=== PATIENT | female | born 1945 | race Caucasian/White ===

== ENCOUNTER 2016-11-11 07:53 | Outpatient (CLI) | payer MEDICARE, OTHER | END 2016-11-11 07:54 | disposition home or self-care (01) | DX: R25.2 Cramp and spasm (principal) ==

== ENCOUNTER 2016-12-24 13:50 | Outpatient (CLI) | payer MEDICARE, OTHER ==
--- NOTE | 2016-12-25 16:42 | Mammography Report ---
DIGITAL SCREENING MAMMOGRAM: 12/24/2016 CLINICAL INDICATION: A 71-year-old for screening. COMPARISON: 11/2012, 10/2011, 06/2010, 05/2009, 04/2008, 11/2006. TECHNIQUE: Routine CC and MLO projections were obtained of the breasts. The breasts demonstrate scattered fibroglandular densities bilaterally. Coarse and punctate, typical ly benign calcifications are present. No suspicious masses, clustered microcalcifications, or region s of architectural distortion are identified. IMPRESSION: BENIGN FINDINGS. RECOMMENDATION: ROUTINE ANNUAL SCREENING UNLESS OTHERWISE CLINICALLY INDICATED. BIRADS CATEGORY: 2, BENIGN FINDINGS. STANDARD QUALIFYING STATEMENTS 1. This examination was reviewed with the aid of Computed-Aided Detection (CAD). 2. A negative or benign imaging report should not delay biopsy if clinically suspicious findings are present. Consider surgical consultation if warranted. More than 5% of cancers are not identified b y imaging. 3. Dense breasts may obscure an underlying neoplasm. JOB #: [id number] EXT JOB #:[id number]
== END 2016-12-24 13:51 | disposition home or self-care (01) ==
LOC: DI.N 13:50
PROVIDERS: ATTEND Family Medicine
DX: Z12.31 Encounter for screening mammogram for malignant neoplasm of breast (principal)
CPT/HCPCS: 77067

== ENCOUNTER 2017-03-30 08:00 | Outpatient (CLI) | payer MEDICARE, OTHER ==
[2017-03-30 13:15] LABS: HEMOGLOBIN A1C 0.48 g/dL
[2017-03-30 13:25] LABS: ALBUMIN/GLOBULIN RATIO 1.6 (1.0-2.2); BILIRUBIN,TOTAL 0.9 mg/dL (0.2-1.0); BUN - BLOOD UREA NITROGEN 15 mg/dL (6-20); CALCIUM 9.7 mg/dL (8.5-10.3); CARBON DIOXIDE - CO2 26 mmol/L (21-32); CHLORIDE 101 mmol/L (101-111); CHOL/HDL RATIO 2.3 (<4.4); CHOLESTEROL 226 mg/dL; CREATININE 0.8 mg/dL (0.4-1.0); GFR - MDRD 71 (>89); GLUCOSE 91 mg/dL (70-100); HDL CHOLESTEROL 98 mg/dL; LDL/HDL RATIO 1.2 (<4.4); SODIUM 135 mmol/L (135-145); TOTAL PROTEIN 7.5 g/dL (6.7-8.2); TRIGLYCERIDES 50 mg/dL; VLDL CHOLESTEROL 10 mg/dL
== END 2017-03-30 08:01 | disposition home or self-care (01) ==
LOC: LAB.WCP 08:00
PROVIDERS: ATTEND Family Medicine
DX: E74.39 Other disorders of intestinal carbohydrate absorption (principal); E78.5 Hyperlipidemia, unspecified; I10 Essential (primary) hypertension; R73.01 Impaired fasting glucose; Z13.1 Encounter for screening for diabetes mellitus
CPT/HCPCS: 36415; 80053; 80061; 83036

== ENCOUNTER 2018-01-10 09:34 | Outpatient (CLI) | payer MEDICARE, OTHER ==
[2018-01-10 13:23] LABS: HB2 TOTAL 14.7 g/dL; HEMOGLOBIN A1C 0.47 g/dL; HEMOGLOBIN A1C % 5.1 % (4.6-6.2)
[2018-01-10 13:53] LABS: ALBUMIN 4.4 g/dL (3.2-5.5); ALBUMIN/GLOBULIN RATIO 1.4 (1.0-2.2); ALKALINE PHOSPHATASE 64 IU/L (42-121); ALT ALANINE AMINOTRANSFERASE 22 IU/L (10-60); AST ASPARTATE AMINOTRANSFERASE 28 IU/L (10-42); BILIRUBIN,TOTAL 0.7 mg/dL (0.2-1.0); BUN - BLOOD UREA NITROGEN 18 mg/dL (6-20); CALCIUM 9.5 mg/dL (8.5-10.3); CARBON DIOXIDE - CO2 26 mmol/L (21-32); CHLORIDE 100 mmol/L (101-111); CHOL/HDL RATIO 1.9 (<4.4); CHOLESTEROL 190 mg/dL; CREATININE 0.5 mg/dL (0.4-1.0); GFR - MDRD 122 (>89); GLUCOSE 94 mg/dL (70-100); HDL CHOLESTEROL 102 mg/dL; LDL CHOLESTEROL,CALCULATED 77 mg/dL; LDL/HDL RATIO 0.8 (<4.4); SODIUM 132 mmol/L (135-145); TOTAL PROTEIN 7.6 g/dL (6.7-8.2); VLDL CHOLESTEROL 11 mg/dL
== END 2018-01-10 09:35 | disposition home or self-care (01) ==
LOC: LAB.WCP 09:34
PROVIDERS: ATTEND Family Medicine
DX: E74.39 Other disorders of intestinal carbohydrate absorption (principal); E78.5 Hyperlipidemia, unspecified; I10 Essential (primary) hypertension; R73.01 Impaired fasting glucose
CPT/HCPCS: 36415; 80053; 80061; 83036; 83721

== ENCOUNTER 2018-01-26 13:30 | Outpatient (CLI) | payer MEDICARE, OTHER ==
--- NOTE | 2018-01-27 17:03 | Mammography Report ---
Procedure Date: 01/26/2018 Accession Number: [id number] / [id number] Procedure: MGN - Screening Mammo Dig Bilat CPT Code: FULL RESULT: EXAM: Screening Mammo Dig Bilat DATE: 01/26/2018 1:49 PM CLINICAL HISTORY: 72-year-old female presents for screening mammogram. TECHNIQUE: Bilateral CC and MLO views were obtained. COMPARISON: 12/24/2016, 01/01/2014, 12/02/2012, 11/13/2011. FINDINGS: The breasts demonstrate diffuse fatty replacement bilaterally. Typically benign coarse bilateral calcifications are seen in both breasts. No suspicious masses, clustered microcalcifications, or regions of architectural distortion are identified. IMPRESSION: Benign findings RECOMMENDATION: Routine annual screening unless otherwise clinically indicated. BIRADS CATEGORY 2: Benign findings STANDARD QUALIFYING STATEMENTS: 1. This examination was reviewed with the aid of Computer-Aided Detection (CAD). 2. A negative or benign imaging report should not delay biopsy if clinically suspicious findings are present. Consider surgical consultation if warrented. More than 5% of cancers are not identified by imaging. 3. Dense breasts may obscure an underlying neoplasm.
== END 2018-01-26 13:31 | disposition home or self-care (01) ==
LOC: DI.N 13:30
PROVIDERS: ATTEND Radiology Diagnostic Radiology
DX: Z12.31 Encounter for screening mammogram for malignant neoplasm of breast (principal)
CPT/HCPCS: 77067

== ENCOUNTER 2018-05-03 09:12 | Outpatient (CLI) | payer MEDICARE, OTHER ==
[2018-05-03 12:26] LABS: BASOPHILS # (AUTO) 0.1 10^3/uL (0.0-0.1); BASOPHILS % (AUTO) 1.9 %; EOSINOPHILS # (AUTO) 0.2 10^3/uL (0.0-0.7); EOSINOPHILS % (AUTO) 4.8 %; HGB - HEMOGLOBIN 13.4 g/dL (12.0-16.0); LYMPHOCYTES # (AUTO) 1.1 10^3/uL (1.5-3.5); LYMPHOCYTES % (AUTO) 30.9 %; MEAN CORPUSCULAR HEMOGLOBIN 30.8 pg (27.0-31.0); MEAN CORPUSCULAR HGB CONC 34.3 g/dL (32.0-36.0); MEAN CORPUSCULAR VOLUME 89.8 fL (81.0-99.0); MEAN PLATELET VOLUME 8.7 fL (7.9-10.8); MONOCYTES # (AUTO) 0.3 10^3/uL (0.0-1.0); MONOCYTES % (AUTO) 7.3 %; NEUTROPHILS % (AUTO) 55.1 %; PLT - PLATELET COUNT 228 10^3/uL (130-450); RED BLOOD COUNT 4.35 10^6/uL (4.20-5.40); RED CELL DISTRIBUTION WIDTH 13.3 % (12.0-15.0); WHITE BLOOD COUNT 3.7 x10^3/uL (4.8-10.8)
[2018-05-03 12:59] LABS: ALBUMIN 4.6 g/dL (3.2-5.5); ALBUMIN/GLOBULIN RATIO 2.1 (1.0-2.2); ALKALINE PHOSPHATASE 62 IU/L (42-121); ALT ALANINE AMINOTRANSFERASE 22 IU/L (10-60); AST ASPARTATE AMINOTRANSFERASE 28 IU/L (10-42); BILIRUBIN,TOTAL 0.8 mg/dL (0.2-1.0); BUN - BLOOD UREA NITROGEN 21 mg/dL (6-20); CALCIUM 9.2 mg/dL (8.5-10.3); CARBON DIOXIDE - CO2 28 mmol/L (21-32); CHLORIDE 99 mmol/L (101-111); CHOL/HDL RATIO 2.8 (<4.4); CHOLESTEROL 261 mg/dL; CREATININE 0.7 mg/dL (0.4-1.0); GFR - MDRD 82 (>89); GLUCOSE 86 mg/dL (70-100); HDL CHOLESTEROL 92 mg/dL; LDL CHOLESTEROL,CALCULATED 155 mg/dL; LDL/HDL RATIO 1.7 (<4.4); MAGNESIUM 1.7 mg/dL (1.7-2.8); SODIUM 135 mmol/L (135-145); TOTAL PROTEIN 6.8 g/dL (6.7-8.2); VLDL CHOLESTEROL 14 mg/dL
== END 2018-05-03 23:59 | disposition home or self-care (01) ==
LOC: LAB.WCP 09:12
PROVIDERS: ATTEND Physician Assistant
DX: I10 Essential (primary) hypertension (principal); E78.5 Hyperlipidemia, unspecified; R25.2 Cramp and spasm
CPT/HCPCS: 36415; 80053; 80061; 83721; 83735; 85025

== ENCOUNTER 2018-11-28 08:00 | Outpatient (CLI) | payer MEDICARE, OTHER | END 2018-11-28 23:59 | disposition home or self-care (01) | LOC: LAB.R 08:00 | PROVIDERS: ATTEND Physician Assistant | DX: R35.0 Frequency of micturition (principal) | CPT/HCPCS: 87077; 87086; 87181 ==

== ENCOUNTER 2018-12-02 08:00 | Outpatient (CLI) | payer MEDICARE, OTHER ==
[2018-12-02 13:58] LABS: BASOPHILS % (AUTO) 0.8 %; EOSINOPHILS # (AUTO) 0.1 10^3/uL (0.0-0.7); EOSINOPHILS % (AUTO) 1.7 %; HGB - HEMOGLOBIN 11.9 g/dL (12.0-16.0); LYMPHOCYTES # (AUTO) 0.7 10^3/uL (1.5-3.5); LYMPHOCYTES % (AUTO) 12.1 %; MEAN CORPUSCULAR HEMOGLOBIN 29.8 pg (27.0-31.0); MEAN CORPUSCULAR HGB CONC 33.6 g/dL (32.0-36.0); MEAN CORPUSCULAR VOLUME 88.7 fL (81.0-99.0); MEAN PLATELET VOLUME 8.9 fL (7.9-10.8); MONOCYTES # (AUTO) 0.7 10^3/uL (0.0-1.0); MONOCYTES % (AUTO) 12.1 %; NEUTROPHILS % (AUTO) 73.3 %; PLT - PLATELET COUNT 188 10^3/uL (130-450); RED BLOOD COUNT 3.99 10^6/uL (4.20-5.40); RED CELL DISTRIBUTION WIDTH 13.7 % (12.0-15.0); WHITE BLOOD COUNT 5.5 x10^3/uL (4.8-10.8)
[2018-12-02 14:34] LABS: ALBUMIN 3.7 g/dL (3.2-5.5); BILIRUBIN,TOTAL 0.5 mg/dL (0.2-1.0); CALCIUM 9.2 mg/dL (8.5-10.3); CREATININE 0.8 mg/dL (0.4-1.0); TOTAL PROTEIN 7.3 g/dL (6.7-8.2)
== END 2018-12-02 23:59 | disposition home or self-care (01) ==
LOC: LAB.WCP 08:00
PROVIDERS: ATTEND Family Medicine
DX: R50.9 Fever, unspecified (principal); R25.2 Cramp and spasm; N39.0 Urinary tract infection, site not specified
CPT/HCPCS: 36415; 80053; 85025; 87086

== ENCOUNTER 2018-12-05 11:42 | Outpatient (CLI) | payer MEDICARE, OTHER ==
[2018-12-06 13:04] LABS: HEPATITIS A IGM NON-REACTIVE (NON-REACTIVE); HEPATITIS B CORE ANTIBODY IGM NON-REACTIVE (NON-REACTIVE); HEPATITIS B SURFACE ANTIGEN NON-REACTIVE (NON-REACTIVE); HEPATITIS C ANTIBODY NON-REACTIVE (NON-REACTIVE)
== END 2018-12-05 11:43 | disposition home or self-care (01) ==
LOC: LAB.WCP 11:42
PROVIDERS: ATTEND Family Medicine
DX: R94.5 Abnormal results of liver function studies (principal)
CPT/HCPCS: 36415; 80074

== ENCOUNTER 2018-12-13 11:30 | Outpatient (CLI) | payer MEDICARE, OTHER | END 2018-12-13 11:31 | disposition home or self-care (01) | LOC: LAB.WCP 11:30 | PROVIDERS: ATTEND Physician Assistant | DX: N39.0 Urinary tract infection, site not specified (principal) | CPT/HCPCS: 81002; 87086 ==

== ENCOUNTER 2018-12-13 12:13 | Outpatient (CLI) | payer MEDICARE, OTHER ==
[2018-12-13 19:34] LABS: ALBUMIN 3.8 g/dL (3.2-5.5); ALBUMIN/GLOBULIN RATIO 0.9 (1.0-2.2); BILIRUBIN,TOTAL 0.6 mg/dL (0.2-1.0); CALCIUM 9.8 mg/dL (8.5-10.3); CREATININE 1.1 mg/dL (0.4-1.0)
[2018-12-13 19:35] LABS: BASOPHILS # (AUTO) 0.1 10^3/uL (0.0-0.1); BASOPHILS % (AUTO) 0.3 %; EOSINOPHILS % (AUTO) 0.1 %; HGB - HEMOGLOBIN 12.3 g/dL (12.0-16.0); LYMPHOCYTES % (AUTO) 5.1 %; MEAN CORPUSCULAR HEMOGLOBIN 29.4 pg (27.0-31.0); MEAN CORPUSCULAR HGB CONC 31.9 g/dL (32.0-36.0); MEAN CORPUSCULAR VOLUME 91.9 fL (81.0-99.0); MEAN PLATELET VOLUME 10.4 fL (7.9-10.8); MONOCYTES # (AUTO) 1.1 10^3/uL (0.0-1.0); MONOCYTES % (AUTO) 5.4 %; NEUTROPHILS # (AUTO) 17.7 10^3/uL (1.5-6.6); NEUTROPHILS % (AUTO) 88.2 %; PLT - PLATELET COUNT 382 10^3/uL (130-450); RED BLOOD COUNT 4.19 10^6/uL (4.20-5.40); RED CELL DISTRIBUTION WIDTH 13.4 % (12.0-15.0)
== END 2018-12-13 12:14 | disposition home or self-care (01) ==
LOC: LAB.WCP 12:13
PROVIDERS: ATTEND Physician Assistant
DX: R79.89 Other specified abnormal findings of blood chemistry (principal); N39.0 Urinary tract infection, site not specified; R50.9 Fever, unspecified
CPT/HCPCS: 36415; 80053; 81002; 83690; 85025; 87086

== ENCOUNTER 2018-12-15 08:00 | Outpatient (CLI) | payer MEDICARE, OTHER ==
[2018-12-15 19:12] LABS: BASOPHILS % (AUTO) 0.5 %; EOSINOPHILS # (AUTO) 0.1 10^3/uL (0.0-0.7); EOSINOPHILS % (AUTO) 1.1 %; HGB - HEMOGLOBIN 10.9 g/dL (12.0-16.0); LYMPHOCYTES % (AUTO) 12.1 %; MEAN CORPUSCULAR HEMOGLOBIN 28.8 pg (27.0-31.0); MEAN CORPUSCULAR HGB CONC 31.8 g/dL (32.0-36.0); MEAN CORPUSCULAR VOLUME 90.7 fL (81.0-99.0); MEAN PLATELET VOLUME 11.1 fL (7.9-10.8); MONOCYTES # (AUTO) 0.5 10^3/uL (0.0-1.0); MONOCYTES % (AUTO) 6.3 %; NEUTROPHILS # (AUTO) 6.7 10^3/uL (1.5-6.6); NEUTROPHILS % (AUTO) 79.5 %; PLT - PLATELET COUNT 289 10^3/uL (130-450); RED BLOOD COUNT 3.78 10^6/uL (4.20-5.40); RED CELL DISTRIBUTION WIDTH 13.2 % (12.0-15.0); WHITE BLOOD COUNT 8.4 x10^3/uL (4.8-10.8)
[2018-12-15 19:59] LABS: ALBUMIN 3.6 g/dL (3.2-5.5); ALBUMIN/GLOBULIN RATIO 0.9 (1.0-2.2); BILIRUBIN,TOTAL 0.6 mg/dL (0.2-1.0); CALCIUM 9.4 mg/dL (8.5-10.3); CREATININE 1.1 mg/dL (0.4-1.0); TOTAL PROTEIN 7.6 g/dL (6.7-8.2)
== END 2018-12-15 23:59 | disposition home or self-care (01) ==
LOC: LAB.WCP 08:00
PROVIDERS: ATTEND Family Medicine
DX: N10 Acute pyelonephritis (principal); R79.89 Other specified abnormal findings of blood chemistry
CPT/HCPCS: 36415; 80053; 82977; 85025

== ENCOUNTER 2018-12-31 09:06 | Outpatient (CLI) | payer MEDICARE, OTHER ==
--- NOTE | 2019-01-02 09:28 | Ultrasound Report ---
Reason: ABNORMAL LIVER FUNCTION TESTS Procedure Date: 12/31/2018 Accession Number: [id number] / [id number] Procedure: US - Abdomen Limited CPT Code: FULL RESULT: EXAM: ABDOMEN LIMITED EXAM DATE: 12/31/2018 09:53 AM INDICATION: Abnormal liver function tests. COMPARISONS: None. FINDINGS: Liver: Liver parenchyma is heterogeneous and moderately hyperechoic. No discrete liver masses or intrahepatic bile duct dilation. However, evaluation for masses is limited secondary to the echogenicity. 0.9 cm anechoic right liver cyst. No concerning features are noted. Right liver measures 13.6 cm. Main portal vein flow: Hepatopetal. Gallbladder: Normal. No stones, wall thickening, or sonographic Fields's sign. Biliary System: CBD measures 4 mm. No intrahepatic or extrahepatic ductal dilatation. Pancreas: Normal. Right kidney: 10.5 cm. No hydronephrosis. Mild pelviectasis. Right renal pelvis measures 1.4 cm. There are multiple simple right-sided renal cysts with the largest measuring 5.1 x 4.7 x 5.1 cm. No concerning features. Abdominal aorta and IVC: Normal. Other: None. IMPRESSION: 1. Mild to moderately echogenic fatty liver. No mass. 0.9 cm simple right liver cyst. 2. Normal gallbladder and common bile duct. Grossly unremarkable pancreas. RADIA
== END 2018-12-31 09:07 | disposition home or self-care (01) ==
LOC: DI 09:06
PROVIDERS: ATTEND Physician Assistant
DX: K76.0 Fatty (change of) liver, not elsewhere classified (principal); R94.5 Abnormal results of liver function studies
CPT/HCPCS: 76705

== ENCOUNTER 2019-01-03 08:00 | Outpatient (CLI) | payer MEDICARE, OTHER ==
[2019-01-03 18:57] LABS: ALBUMIN 4.3 g/dL (3.2-5.5); ALBUMIN/GLOBULIN RATIO 1.3 (1.0-2.2); BILIRUBIN,TOTAL 0.8 mg/dL (0.2-1.0); CALCIUM 9.6 mg/dL (8.5-10.3); TOTAL PROTEIN 7.7 g/dL (6.7-8.2)
== END 2019-01-03 23:59 | disposition home or self-care (01) ==
LOC: LAB.WCP 08:00
PROVIDERS: ATTEND Physician Assistant
DX: R94.5 Abnormal results of liver function studies (principal)
CPT/HCPCS: 36415; 80053

== ENCOUNTER 2019-03-22 13:25 | Outpatient (CLI) | payer MEDICARE, OTHER ==
--- NOTE | 2019-03-23 10:13 | Mammography Report ---
Reason: ROUTINE MAMMO Procedure Date: 03/22/2019 Accession Number: [id number] / [id number] Procedure: MGN - Screening Mammo Dig Bilat CPT Code: FULL RESULT: EXAM: Screening Mammo Dig Bilat DATE: 03/22/2019 1:42 PM CLINICAL HISTORY: Screening encounter. TECHNIQUE: (B) - Bilateral CC and MLO views were obtained. COMPARISON: 01/26/2018 through 12/02/2012. PARENCHYMAL PATTERN: (A) - The breast(s) demonstrate(s) scattered fibroglandular densities. FINDINGS: There are coarse typically benign calcifications. Additionally, in the right axillary tail region, 9 cm from the nipple at the 11:00 position is an increasing focal asymmetry, questionably with increasing calcifications. This requires additional spot magnification views, ideally tomographic evaluation and potentially ultrasound for clarification. There are no suspicious masses, calcifications, or areas of distortion in the left breast. IMPRESSION: Incomplete examination. BI-RADS category 0. RECOMMENDATION: (ADDM[facility]) - Additional views using both Mammography and Ultrasound recommended. Right breast upper outer quadrant. BI-RADS CATEGORY: (0) - Incomplete Examination - need additional evaluation. STANDARD QUALIFYING STATEMENTS: 1. This examination was not reviewed with the aid of Computer-Aided Detection (CAD). 2. A negative or benign imaging report should not preclude biopsy if clinically suspicious findings are present. 3. Dense breasts may obscure an underlying neoplasm. 4. This examination was reviewed without the aid of 3D breast imaging (tomosynthesis).
== END 2019-03-22 13:26 | disposition home or self-care (01) ==
LOC: DI.N 13:25
DX: Z12.31 Encounter for screening mammogram for malignant neoplasm of breast (principal)
CPT/HCPCS: 77067

== ENCOUNTER 2019-04-03 09:27 | Outpatient (CLI) | payer MEDICARE, OTHER ==
--- NOTE | 2019-04-03 10:08 | Mammography Report ---
Reason: ABN MAMMO - SPEC VIEWS RIGHT Procedure Date: 04/03/2019 Accession Number: [id number] / [id number] Procedure: INGRID - Diag Special Views Dig RT CPT Code: FULL RESULT: EXAM: Diag Special Views Dig RT DATE: 04/03/2019 9:49 AM CLINICAL HISTORY: Recall from screening upper outer right breast. TECHNIQUE: (R) - Right coned magnified CC and ML views. RML 3-D. COMPARISON: 03/22/2019 through 12/02/2012. PARENCHYMAL PATTERN: (A) - The breasts demonstrate scattered fibroglandular densities bilaterally. FINDINGS: Right breast: Additional images demonstrate a 17 mm asymmetry with associated punctate calcifications unchanged compared to studies dating back to 2012. With compression, finding subtotally effaces and resembles glandular tissue. There are no suspicious masses, calcifications, or areas of distortion. IMPRESSION: Benign findings. BI-RADS category 2. Finding nearly effaces with compression and returns to baseline appearance compared to studies dating back to 2012. RECOMMENDATION: (ANNUAL) - Recommend routine annual screening mammography. BI-RADS CATEGORY: (2) - Benign Findings. STANDARD QUALIFYING STATEMENTS: 1. This examination was not reviewed with the aid of Computer-Aided Detection (CAD). 2. A negative or benign imaging report should not preclude biopsy if clinically suspicious findings are present. 3. Dense breasts may obscure an underlying neoplasm. 4. This examination was reviewed with the aid of 3D breast imaging (tomosynthesis).
== END 2019-04-03 09:28 | disposition home or self-care (01) ==
LOC: DI 09:27
PROVIDERS: ATTEND Physician Assistant
DX: N63.11 Unspecified lump in the right breast, upper outer quadrant (principal)

== ENCOUNTER 2020-03-01 14:32 | Outpatient (CLI) | payer MEDICARE, OTHER | END 2020-03-01 14:33 | disposition home or self-care (01) | LOC: COV 14:32 | PROVIDERS: ATTEND Ophthalmology | DX: Z01.818 Encounter for other preprocedural examination (principal); H25.11 Age-related nuclear cataract, right eye; Z20.828 Contact with and (suspected) exposure to other viral communicable diseases ==

== ENCOUNTER 2020-03-07 07:18 | Day surgery (SDC) | payer MEDICARE, OTHER ==
[2020-03-07] MEDS ORDERED: EPINEPHrine 1 MG/ML AMP ONE (07:19)
[2020-03-07] MEDS ORDERED: MIDAZOLAM 2 MG/2 ML VIAL IVP ONE ×2 (07:19)
[2020-03-07] MEDS ORDERED: BSS/LIDOCAINE/EPINEPHRINE 1 ML SYRINGE ONE (07:20)
[2020-03-07] MEDS ORDERED: BRIMONIDINE 0.2% OPHTH DROPS 5 ML ONE (07:20)
[2020-03-07] MEDS ORDERED: TRIAMCIN/MOXIFLOX OPHTHALMIC 0.6 ML VIAL IO ONE ×2 (07:20→08:43)
[2020-03-07] MEDS ORDERED: TIMOLOL 0.5% OPHTH DROPS ONE (07:21)
[2020-03-07] MEDS ORDERED: LACTATED RINGERS 500 ML IV ONE ×2 (07:26→08:47)
[2020-03-07] MEDS ORDERED: CYCLOPENTOLATE 1% OPHTH DROPS 2 ML ONE (07:50)
[2020-03-07] MEDS ORDERED: PHENYLEPHRINE 2.5% OPHTH 2 ML DROPS ONE (07:50)
[2020-03-07] MEDS ORDERED: KETOROLAC 0.45% OPHTH DROPS ONE (07:50)
[2020-03-07] MEDS ORDERED: PROPARACAINE 0.5% OPHTH DROPS 15 ML ONE (07:50)
--- NOTE | 2020-03-07 08:07 | ANESTHESIA ---
Pre-Anesthesia VS, & Labs - Diagnosis R nuclear sclerotic cataract - Procedure R cataract extraction w/IOL Vital Signs: Temp Pulse Resp BP Pulse Ox 36.1 C L 67 16 135/102 H 99 03/07/20 07:31 03/07/20 07:31 03/07/20 07:31 03/07/20 07:31 03/07/20 07:31 Height 5 ft Weight (kg) 57.8 kg - NPO >8 hours - Is Patient ?: No Home Medications and Allergies Home Medications: Ambulatory Orders Diclofenac Sodium [Voltaren-Xr] 100 mg PO DAILY 03/07/20 Lisinopril [Prinivil] 5 mg PO DAILY 03/07/20 Meloxicam 7.5 mg PO DAILY 03/07/20 Omeprazole 20 mg PO DAILY 03/07/20 Simvastatin 40 mg PO DAILY 03/07/20 amLODIPine [Norvasc] 5 mg PO DAILY 03/07/20 rOPINIRole [Requip] 0.25 mg PO QPM 03/07/20 Diclofenac Sodium [Voltaren-Xr] 100 mg PO DAILY 03/07/20 Lisinopril [Prinivil] 5 mg PO DAILY 03/07/20 Meloxicam 7.5 mg PO DAILY 03/07/20 Omeprazole 20 mg PO DAILY 03/07/20 Simvastatin 40 mg PO DAILY 03/07/20 amLODIPine [Norvasc] 5 mg PO DAILY 03/07/20 rOPINIRole [Requip] 0.25 mg PO QPM 03/07/20 Allergies/Adverse Reactions: Allergies Allergy/AdvReac Type Severity Reaction Status Date / Time No Known Drug Allergies Allergy Verified 03/06/20 12:53 Anes History & Medical History - Anesthetic History Anesthesia Complications: reports: No previous complications Family history of Anesthesia Complications: Denies Family history of Malignant Hyperthermia: Denies - Medical History Cardiovascular: reports: Hypertension, High cholesterol Pulmonary: reports: None Gastrointestinal: reports: None Urinary: reports: None Musculoskeletal: reports: Osteoarthritis Endocrine/Autoimmune: reports: None Skin: reports: None - Surgical History General: Colonoscopy Exam General: Oriented x3, Cooperative Dental: WNL Mouth Openin Fingerbreadth Neck Mobility: Normal Mallampati classification: II Thyromental Distance: 4-6 cm Respiratory: Lungs clear, Normal breath sounds, No respiratory distress Cardiovascular: Regular rate Neurological: Normal speech Mental/Cognitive Status: Alert/Oriented X3, Normal for patient Cognitive Status: Within normal limits Plan Anesthesia Type: MAC Consent for Procedure(s) Verified and Reviewed: Yes Code Status: Attempt Resuscitation ASA classification: 2-Mild systemic disease Is this case an emergency?: No
[2020-03-07] MEDS ORDERED: BRIMONIDINE 0.2% OPHTH DROPS 5 ML OPTH ONE (08:42)
[2020-03-07] MEDS ORDERED: EPINEPHrine 1 MG/ML AMP IR ONE (08:42)
[2020-03-07] MEDS ORDERED: TIMOLOL 0.5% OPHTH DROPS OPTH ONE (08:42)
[2020-03-07] MEDS ORDERED: CHONDR SULF/HYALURONATE SYRINGE IO ONE (08:42)
[2020-03-07] MEDS ORDERED: BSS/LIDOCAINE/EPINEPHRINE 1 ML SYRINGE IO ONE (08:43)
[2020-03-07] MEDS ORDERED: PROPARACAINE 0.5% OPHTH DROPS 15 ML EACHEYE ONE (08:43)
[2020-03-07] MEDS ORDERED: VANCOMYCIN OPHTHALMI 8MG/0.8ML 8 MG/0.8 ML SYRINGE IO ONE (08:44)
[2020-03-07 09:06] VITALS: BP 109/73
--- NOTE | 2020-03-07 11:46 | OPERATIVE REPORT ---
DATE OF SERVICE: 03/07/2020 Physician: Lino Roberts MD PREOPERATIVE DIAGNOSIS: Visually significant cataract, right eye. This was her first cataract surge ry. POSTOPERATIVE DIAGNOSIS: Visually significant cataract, right eye. This was her first cataract surg tom. PROCEDURE: Phacoemulsification with posterior chamber intraocular lens implant, right eye. SURGEON: Lino Roberts MD ANESTHESIA: Monitored anesthesia care. COMPLICATIONS: None. OPERATIVE INDICATIONS: This is a 74-year-old woman with progressive vision loss in the right eye due to 2+ nuclear sclerotic and 3+ cortical cataract. Best corrected visual acuity was 20/40, with glar e to 20/80 in the right eye. Indications for surgery were overall decrease in vision, difficulty see ing words on a computer screen, difficulty reading, difficulty driving in low light or at night, diff iculty driving at night because of headlights from other vehicles, and difficulty with glare or brigh t lights in any situation. She was consented at length concerning risks and benefits of cataract sherin carmen, after which she expressed a desire to proceed with surgery. OPERATIVE PROCEDURE: Patient was taken to OR #3 and placed under monitored anesthesia care and surgi annie timeout was conducted confirming correct patient, correct procedure, and correct surgical site. She was given topical anesthesia then prepped and draped in the usual sterile fashion. The eye was e ntered at the 12, and 9 o'clock positions. Intracameral Shugarcaine was injected into the anterior c hamber, followed by Viscoat. A continuous-tear curvilinear capsulorrhexis was performed. The nucleu s was hydrodissected and phacoemulsified. The cortex was evacuated using automated infusion and aspi ration. Provisc was injected in the capsular bag, and a 21.0 diopter intraocular lens inserted in th e bag. Infusion and aspiration was used to evacuate the viscoelastic materials. The eye was inflate d to physiologic pressure using balanced salt solution and found to be watertight. Approximately 0.2 5 mL of a mixture of triamcinolone and moxifloxacin was injected trans sclerally into the vitreous in the inferotemporal quadrant. An additional 0.55 mL of a mixture of triamcinolone, moxifloxacin and vancomycin was injected subconjunctivally in the superior quadrant for infection and inflammation pro phylaxis. Wound integrity was checked with Weck-Mary sponges. Patient was taken from the Operating R oom in good condition and given postoperative instructions. TD: 03/07/2020 08:54
== END 2020-03-07 07:19 | disposition home or self-care (01) ==
LOC: SDS 07:18
PROVIDERS: ATTEND Ophthalmology
PROC: 08RJ3JZ Replacement of Right Lens with Synthetic Substitute, Percutaneous Approach (ICD-10-PCS; principal; 2020-03-07 08:30)
DX: H25.11 Age-related nuclear cataract, right eye (principal); I10 Essential (primary) hypertension; E78.00 Pure hypercholesterolemia, unspecified; Z87.891 Personal history of nicotine dependence
CPT/HCPCS: 66984; A9270; J3490; V2632

== ENCOUNTER 2020-04-08 08:00 | Outpatient (CLI) | payer MEDICARE, OTHER | END 2020-04-08 23:59 | disposition home or self-care (01) | LOC: LAB 08:00 | PROVIDERS: ATTEND Ophthalmology | DX: Z01.818 Encounter for other preprocedural examination (principal); Z20.828 Contact with and (suspected) exposure to other viral communicable diseases; H25.12 Age-related nuclear cataract, left eye ==

== ENCOUNTER 2020-04-11 10:22 | Day surgery (SDC) | payer MEDICARE, OTHER ==
[~2020-04-11 10:22] MED LIST: KETOROLAC 0.45% OPHTH DROPS ONE; PHENYLEPHRINE 2.5% OPHTH 2 ML DROPS ONE; PROPARACAINE 0.5% OPHTH DROPS 15 ML ONE
[2020-04-11] MEDS ORDERED: LACTATED RINGERS 500 ML IV ONE ×2 (11:03→12:09)
[2020-04-11] MEDS ORDERED: NALOXONE 0.4 MG/ML VIAL IVP PRN (11:17)
[2020-04-11] MEDS ORDERED: ePHEDrine 50 MG/ML VIAL IVP PRN (11:17)
[2020-04-11] MEDS ORDERED: ATROPINE ABBOJECT 1 MG/10 ML SYRINGE IVP PRN (11:17)
[2020-04-11] MEDS ORDERED: MORPHINE 2 MG/ML CARPUJECT IVP PRN (11:17)
[2020-04-11] MEDS ORDERED: HYDROmorphone 0.5 MG/0.5 ML SYRINGE IVP PRN (11:17)
[2020-04-11] MEDS ORDERED: METOCLOPRAMIDE 10 MG/2 ML VIAL IVP PRN (11:17)
[2020-04-11] MEDS ORDERED: fentaNYL 100 MCG/2 ML VIAL IVP PRN (11:17)
[2020-04-11] MEDS ORDERED: ONDANSETRON 4 MG/2 ML VIAL IVP PRN (11:17)
--- NOTE | 2020-04-11 11:17 | ANESTHESIA ---
Pre-Anesthesia VS, & Labs - Diagnosis left eye cataract - Procedure left catiol Vital Signs: Temp Pulse Resp BP Pulse Ox 36.4 C L 57 L 16 122/78 99 04/11/20 10:45 04/11/20 10:45 04/11/20 10:45 04/11/20 10:45 04/11/20 10:45 Height: 4 ft 11 in Weight (kg): 57.6 kg Body Mass Index: 25.6 BMI Classification: Overweight - NPO >8 hours - Is Patient ?: No Home Medications and Allergies Diclofenac Sodium [Voltaren-Xr] 100 mg PO DAILY 03/07/20 Lisinopril [Prinivil] 5 mg PO DAILY 03/07/20 Meloxicam 7.5 mg PO DAILY 03/07/20 Omeprazole 20 mg PO DAILY 03/07/20 Simvastatin 40 mg PO DAILY 03/07/20 amLODIPine [Norvasc] 5 mg PO DAILY 03/07/20 rOPINIRole [Requip] 0.25 mg PO QPM 03/07/20 Allergies/Adverse Reactions: Allergies Allergy/AdvReac Type Severity Reaction Status Date / Time No Known Drug Allergies Allergy Verified 03/06/20 12:53 Anes History & Medical History - Anesthetic History Anesthesia Complications: reports: No previous complications Family history of Anesthesia Complications: Denies Family history of Malignant Hyperthermia: Denies - Medical History Cardiovascular: reports: Hypertension, High cholesterol Pulmonary: reports: None Gastrointestinal: reports: None Urinary: reports: None Musculoskeletal: reports: Osteoarthritis Endocrine/Autoimmune: reports: None Skin: reports: None - Surgical History General: Colonoscopy Exam General: Alert, Oriented x3, Cooperative, No acute distress Dental: WNL Mouth Openin Fingerbreadth Neck Mobility: Normal Mallampati classification: II Plan Anesthesia Type: MAC Consent for Procedure(s) Verified and Reviewed: Yes Code Status: Attempt Resuscitation ASA classification: 2-Mild systemic disease Is this case an emergency?: No
[2020-04-11] MEDS ORDERED: fentaNYL 100 MCG/2 ML VIAL IVP ONE (11:53)
[2020-04-11] MEDS ORDERED: MIDAZOLAM 2 MG/2 ML VIAL IVP ONE (11:53)
[2020-04-11] MEDS ORDERED: BRIMONIDINE 0.2% OPHTH DROPS 5 ML OPTH ONE (11:54)
[2020-04-11] MEDS ORDERED: PROPARACAINE 0.5% OPHTH DROPS 15 ML EACHEYE ONE (11:55)
[2020-04-11] MEDS ORDERED: EPINEPHrine 1 MG/ML AMP IR ONE (11:55)
[2020-04-11] MEDS ORDERED: CHONDR SULF/HYALURONATE SYRINGE IO ONE (11:55)
[2020-04-11] MEDS ORDERED: TIMOLOL 0.5% OPHTH DROPS OPTH ONE (11:55)
[2020-04-11] MEDS ORDERED: BSS/LIDOCAINE/EPINEPHRINE 1 ML SYRINGE IO ONE (11:56)
[2020-04-11] MEDS ORDERED: TRIAMCIN/MOXIFLOX OPHTHALMIC 0.6 ML VIAL IO ONE (11:57)
[2020-04-11] MEDS ORDERED: VANCOMYCIN OPHTHALMI 8MG/0.8ML 8 MG/0.8 ML SYRINGE IO ONE (11:59)
[2020-04-11] MEDS ORDERED: LACTATED RINGERS 1,000 ML IV SCH (12:00)
[2020-04-11 12:21] VITALS: BP 115/69
--- NOTE | 2020-04-11 13:52 | ANESTHESIA POST OP EVALUATION ---
Anesthesia Post Eval - Post Anesthesia Eval Vitals: Last Vital Signs Temp 36.4 C L 04/11/20 12:20 Pulse 60 04/11/20 12:20 Resp 22 04/11/20 12:20 BP 115/69 04/11/20 12:20 Pulse Ox 96 04/11/20 12:20 CV Function Including HR & BP: positive: Stable Pain Control: positive: Satisfactory Nausea & Vomiting: positive: Negative Mental Status: positive: Baseline Respiratory Status: Airway Patent Hydration Status: Satisfactory Anesthesia Complications: positive: None
--- NOTE | 2020-04-11 16:39 | OPERATIVE REPORT ---
DATE OF SERVICE: 04/11/2020 Physician: Lino Roberts MD PREOPERATIVE DIAGNOSIS: Visually significant cataract, left eye. Cataract surgery was performed on the right eye on 03/07/2020. POSTOPERATIVE DIAGNOSIS: Visually significant cataract, left eye. Cataract surgery was performed on the right eye on 03/07/2020. PROCEDURE: Phacoemulsification with posterior chamber intraocular lens implant, left eye. SURGEON: Lino Roberts MD ANESTHESIA: Monitored anesthesia care. COMPLICATIONS: None. OPERATIVE INDICATIONS: This is a 75-year-old woman with progressive vision loss in the left eye due to 2+ nuclear sclerotic and 3+ cortical cataract. Best corrected visual acuity was 20/40, with glare to 20/80 in the left eye. Indications for surgery were overall decrease in vision, difficulty readi ng, difficulty driving in low light or at night, difficulty driving at night because headlights from other vehicles, and difficulty with glare or bright lights in any situation. She was consented at [facility] concerning risks and benefits of cataract surgery, after which she expressed a desire to proceed with surgery. OPERATIVE PROCEDURE: Patient was taken to OR #3 and placed under monitored anesthesia care. Surgica l timeout was conducted confirming correct patient, correct procedure, and correct surgical site. Sh e was given topical anesthesia, and prepped and draped in the usual sterile fashion. The eye was ent ered at the 6 and 3 o'clock positions. Intracameral Shugarcaine was injected into the anterior chamb er, followed by Viscoat. A continuous-tear curvilinear capsulorrhexis was performed. Nucleus was hy drodissected and phacoemulsified. The cortex was evacuated using automated infusion and aspiration. Provisc was injected in the capsular bag, and a 23.0 diopter intraocular lens was inserted into the bag. Infusion and aspiration was used to evacuate the viscoelastic materials. The eye was inflated to physiologic pressure using balanced salt solution and found to be watertight. Approximately 0.25 mL of a mixture of triamcinolone and moxifloxacin was injected transsclerally into the vitreous in th e inferotemporal quadrant. An additional 0.55 mL of a mixture of triamcinolone, moxifloxacin and van comycin was injected subconjunctivally in the superior quadrant for infection and inflammation prophy laxis. Wound integrity was checked with Weck-Mary sponges. Patient was taken from the Operating Room in good condition and given postoperative instructions. TD: 04/11/2020 12:13
== END 2020-04-11 10:23 | disposition home or self-care (01) ==
LOC: SDS 10:22
PROVIDERS: ATTEND Ophthalmology
DX: H25.12 Age-related nuclear cataract, left eye (principal); Z98.41 Cataract extraction status, right eye; Z87.891 Personal history of nicotine dependence
CPT/HCPCS: 66984; A9270; J3490; J7120; V2632

== ENCOUNTER 2020-04-30 09:41 | Outpatient (CLI) | payer MEDICARE, OTHER ==
[2020-04-30 12:20] LABS: BASOPHILS # (AUTO) 0.1 10^3/uL (0.0-0.1); BASOPHILS % (AUTO) 1.8 %; EOSINOPHILS # (AUTO) 0.2 10^3/uL (0.0-0.7); EOSINOPHILS % (AUTO) 5.2 %; HGB - HEMOGLOBIN 12.7 g/dL (12.0-16.0); LYMPHOCYTES # (AUTO) 1.1 10^3/uL (1.5-3.5); LYMPHOCYTES % (AUTO) 27.5 %; MEAN CORPUSCULAR HEMOGLOBIN 30.2 pg (27.0-31.0); MEAN CORPUSCULAR HGB CONC 32.6 g/dL (32.0-36.0); MEAN CORPUSCULAR VOLUME 92.6 fL (81.0-99.0); MEAN PLATELET VOLUME 10.6 fL (7.9-10.8); MONOCYTES # (AUTO) 0.3 10^3/uL (0.0-1.0); MONOCYTES % (AUTO) 8.5 %; NEUTROPHILS # (AUTO) 2.2 10^3/uL (1.5-6.6); PLT - PLATELET COUNT 215 10^3/uL (130-450); RED CELL DISTRIBUTION WIDTH 13.3 % (12.0-15.0); WHITE BLOOD COUNT 3.9 x10^3/uL (4.8-10.8)
[2020-04-30 12:40] LABS: ALBUMIN 4.6 g/dL (3.2-5.5); ALBUMIN/GLOBULIN RATIO 1.4 (1.0-2.2); ALKALINE PHOSPHATASE 64 IU/L (42-121); ALT ALANINE AMINOTRANSFERASE 22 IU/L (10-60); AST ASPARTATE AMINOTRANSFERASE 28 IU/L (10-42); BUN - BLOOD UREA NITROGEN 20 mg/dL (6-20); CALCIUM 9.9 mg/dL (8.5-10.3); CARBON DIOXIDE - CO2 27 mmol/L (21-32); CHLORIDE 103 mmol/L (101-111); CHOL/HDL RATIO 2.6 (<4.4); CHOLESTEROL 265 mg/dL; CREATININE 0.8 mg/dL (0.4-1.0); GLUCOSE 89 mg/dL (70-100); HDL CHOLESTEROL 101 mg/dL; LDL CHOLESTEROL,CALCULATED 148 mg/dL; LDL/HDL RATIO 1.5 (<4.4); SODIUM 140 mmol/L (135-145); TOTAL PROTEIN 7.8 g/dL (6.7-8.2); VLDL CHOLESTEROL 16 mg/dL
[2020-04-30 12:43] LABS: HEMOGLOBIN A1c% 5.3 % (4.27-6.07)
== END 2020-04-30 23:59 | disposition home or self-care (01) ==
LOC: LAB.WCP 09:41
PROVIDERS: ATTEND Physician Assistant
DX: E78.5 Hyperlipidemia, unspecified (principal); E74.39 Other disorders of intestinal carbohydrate absorption; I10 Essential (primary) hypertension
CPT/HCPCS: 36415; 80053; 80061; 83036; 83721; 85025